=== PATIENT | female | born 1975 | race Hispanic/Latino ===

== ENCOUNTER 2016-12-23 11:58 | Emergency (ER) | payer OTHER ==
[~2016-12-23] VITALS: Ht 152.4 cm; Wt 72.6 kg
[~2016-12-23 11:58] MED LIST: AUGMENTIN 875-1 EACH PO; ERYTHROMYCIN1 GM OPH; NORFLEX100 MG PO; OMEPRAZOLE40 M1 PO; PERCOCET 5-3251 EACH PO; TERBINAFINE HC250 MG PO; VENTOLIN HFA18 GM INH; VITAMIN D250000 UNIT PO; VOLTAREN75 MG PO; ZOFRAN4 M2 PO; ZOFRAN4 M2 SL
--- NOTE | 2016-12-23 13:14 | ED GENERAL ADULT ---
History of Present Illness General Chief Complaint: Female Urogenital Problems Stated Complaint: L SIDE PAIN Source: patient Exam Limitations: no limitations Allergies Coded Allergies: morphine (Severe, SOB 09/26/16) hydromorphone (From DILAUDID) (Mild, THIGHTNESS IN THROAT 09/26/16) ibuprofen (Intermediate, ABD PAIN 09/26/16) Reconcile Medications No Known Home Medications Triage Note: PT TO ED WITH C/O RIGHT LOWER ABD "DUE FOR PERIOD", "I HAD MY LEFT OVARY REMOVED FOR A TUMOR IN SEPTEMBER". DENIES FEVER, DENIES N/V/D, DENIES URINARY DIFF. Triage Nurses Notes Reviewed? yes : No Patient currently breastfeeds: No HPI: MS. HOBSON IS A 41 YO F W/ PMH OF TERATOMA S/P RESECTION AND H.PYLORI PRESENTING TO ED FOR L-SIDED PELVIC PAIN AND VAGINAL BLEEDING. PT STATES SHE'S HAD VAGINAL BLEEDING X7DAYS. PT STATES SHE HAD SOME LOWER PELVIC PAIN YESTERDAY , TOOK MOTRIN, WHICH HELPED. TODAY, PAIN DEVELOPED AGAIN, BUT WAS MORE SEVERE. SHE TOOK MOTRIN AT 11AM WITHOUT RELIEF. PT HAD A NORMAL PERIOD 2 WEEKS AGO THAT LASTED FOR 3DAYS. PT STATES HER PERIODS NORMALLY ONLY LAST 3D. PT DENIES FEVER , CHILLS, CHEST PAIN, COUGH, SOB, N/V/D, DYSURIA, VAGINAL DISCHARGE. (SIRI COLLINS,[facility]) Vital Signs & Intake/Output Vital Signs & Intake/Output Vital Signs Date Time Temp Pulse Resp B/P Pulse O2 O2 Flow FiO2 Ox Delivery Rate 12/23 1526 97.0 84 15 128/73 95 Room Air Room Air 12/23 1311 Room Air Room Air 12/23 1208 98.3 80 20 127/88 98 Room Air Room Air Past History Travel History Traveled to [place] past 21 day No Medical History Any Pertinent Medical History? see below for history Neurological: NONE EENT: NONE Cardiovascular: NONE Respiratory: NONE Gastrointestinal: H. PYLORI Hepatic: NONE Renal: NONE Musculoskeletal: NONE Psychiatric: NONE Endocrine: NONE Blood Disorders: NONE Cancer(s): NONE PATIENT SERVICES MANAGER/Reproductive: OVARIAN CYST History of MRSA: No History of VRE: No History of CDIFF: No Surgical History Surgical History: , OOPHORECTOMY Psychosocial History Who do you live with Son What is your primary language Setswana Tobacco Use: Never used ETOH Use: denies use Illicit Drug Use: denies illicit drug use Family History Hx Contributory? No (BROOKE HORNER MD) Review of Systems Review of Systems Constitutional: Reports: no symptoms. EENTM: Reports: no symptoms. Respiratory: Reports: no symptoms. Cardiovascular: Reports: no symptoms. GI: Reports: no symptoms. Genitourinary: Reports: pain (L PELVIC PAIN AND VAG BLEEDING). Denies: discharge, dysuria, frequency, hematuria. Musculoskeletal: Reports: no symptoms. Skin: Reports: no symptoms. Neurological/Psychological: Reports: no symptoms. Hematologic/Endocrine: Reports: no symptoms. Immunologic/Allergic: Reports: no symptoms. All Other Systems: Reviewed and Negative (BROOKE HORNER MD) Physical Exam Physical Exam General Appearance: well developed/nourished, no apparent distress, alert, awake Head: atraumatic, normal appearance, active bleeding Eyes: Bilateral: normal appearance, PERRL, EOMI. Ears, Nose, Throat: normal pharynx, normal ENT inspection, hearing grossly normal Neck: normal inspection, supple, full range of motion Respiratory: normal breath sounds, chest non-tender, no respiratory distress Cardiovascular: regular rate/rhythm, normal peripheral pulses Gastrointestinal: soft, non-tender, no organomegaly Rectal: deferred Back: normal inspection, normal range of motion Extremities: normal inspection, normal capillary refill, normal range of motion, no edema Neurologic/Psych: no motor/sensory deficits, awake, alert, oriented x 3, normal gait, normal mood/affect Skin: intact, normal color, warm/dry Comments: CLOSED CERVICAL OS. NO CMT. ACTIVE VAGINAL BLEEDING Core Measures ACS in differential dx? No CVA/TIA Diagnosis: No Severe Sepsis Present: No Septic Shock Present: No (BROOKE HORNER MD) Progress Differential Diagnoses I considered the following diagnoses in my evaluation of the patient: [ DYSMENORRHEA CERVICITIS UTI RUPTURED CYST DYSMENORRHEA Diagnostic Imaging: Viewed by Me: Ultrasound. Discussed w/RAD: Ultrasound. Radiology Impression: 1. Normal uterus and endometrial stripe. 2. Status post left oophorectomy with no evidence of recurrent mass. 3. Large thin-walled cystic mass is seen completely replacing the right ovarian parenchyma. There may be slight complexity to the mass with question of subtle focal vascular flow within the cyst wall versus adjacent flattened ovarian tissue. No suspicious nodular components seen. Findings are probably benign. Short interval follow-up ultrasound evaluation in 6 weeks is suggested for reassessment. Initial ED EKG: none (BROOKE HORNER MD) Plan of Care: Orders Procedure Date/time Status COMPREHENSIVE METABOLIC PANEL 12/23 1311 Complete CBC WITHOUT DIFFERENTIAL 12/23 1311 Complete URINE 12/23 121 Complete URINALYSIS 12/23 121 Complete Laboratory Tests 12/23/16 1320: Anion Gap 9, Estimated GFR > 60, BUN/Creatinine Ratio 24.0, Glucose 80, Calcium 8.5, Total Bilirubin 0.3, AST 19, ALT 37, Alkaline Phosphatase 97, Total Protein 6.7, Albumin 3.6, Globulin 3.1, Albumin/Globulin Ratio 1.2, CBC w Diff NO MAN DIFF REQ, RBC 4.74, MCV 83.4, MCH 27.4, RDW 13.4, MPV 8.0, Gran % 66.7, Lymphocytes % 19.7 L, Monocytes % 8.3, Eosinophils % 4.7, Basophils % 0.6, Absolute Granulocytes 5.7, Absolute Lymphocytes 1.7, Absolute Monocytes 0.7 H, Absolute Eosinophils 0.4, Absolute Basophils 0, PUBS MCHC 32.9 L 12/23/16 131: Urine Test Cancelled 12/23/16 1219: Urine Color BLDY H, Urine Clarity TURBD H, Urine pH 5.0, Ur Specific [place] 1.025, Urine Protein 100 H, Urine Ketones TRACE H, Urine Nitrite POS H, Urine Bilirubin NEG, Urine Urobilinogen 2.0 H, Ur Leukocyte Esterase SMALL H, Ur Microscopic SEDIMENT EXAMINED, Urine RBC PACKD H, Urine WBC RARE, Ur Epithelial Cells FEW, Urine Hemoglobin LARGE H, Urine Glucose NEG, Urine Test NEGATIVE PT IS WELL-APPEARING 41 YO F. HX OF TERATOMA S/P REMOVAL W/ ABDOMINAL PAIN AND VAG BLEEDING. PT IS WELL-APPEARING. LIKELY DYSMENORRHEA. WILL OBTAIN US AND BASIC LABS. LABS DO NOT SHOW ANY EVIDENCE OF ANEMIA. PELVIC EXAM NEGATIVE FOR CMT TENDERNESS. UNLIKELY INFECTIOUS ETIOLOGY. UA NEGATIVE FOR UTI, BUT LIMITED SAMPLE GIVEN EXCESS OF BLOOD IN IT. US DOES SHOW A LARGE R SIDED CYST. PT'S PAIN IMPROVED W/ FLUIDS AND TORADOL. WILL DC HOME W/ F/U W/ PATIENT SERVICES MANAGER AND RETURN PRECAUTIONS GIVEN. (BROOKE HORNER MD) Departure Departure Time of Disposition: 1638 Disposition: HOME OR SELF CARE Condition: Stable Clinical Impression Primary Impression: Pelvic pain Secondary Impressions: Dysmenorrhea Referrals: AUDREY ARIZMENDI (PCP/Family) Additional Instructions: YOUR BLOODWORK TODAY DOES NOT SHOW ANY PROBLEMS. YOUR ULTRASOUND SHOWS: 1. Normal uterus and endometrial stripe. 2. Status post left oophorectomy with no evidence of recurrent mass. 3. Large thin-walled cystic mass is seen completely replacing the right ovarian parenchyma. There may be slight complexity to the mass with question of subtle focal vascular flow within the cyst wall versus adjacent flattened ovarian tissue. No suspicious nodular components seen. Findings are probably benign. Short interval follow-up ultrasound evaluation in 6 weeks is suggested for reassessment. I WOULD RECOMMEND YOU FOLLOW UP WITH YOUR GYNOCOLOGIST SOON POSSIBLE. IF YOU HAVE WORSENING PAIN, UNABLE TO WALK, LIGHTHEADEDNESS OR ANY WORSENING OF SYMPTOMS, RETURN TO THE EMERGENCY DEPARTMENT. Departure Forms: Customer Survey General Discharge Information Prescriptions: Current Visit Scripts No Known Home Medications (BROOKE HORNER MD) Resident Co-Sign Statement Statement: ED Attending supervision documentation- [X] I saw and evaluated the patient. I have also reviewed all the pertinent lab results and diagnostic results. I agree with the findings and the plan of care as documented in the Resident's documentation. [] I have reviewed the ED Record and agree with the Resident's documentation. [] Additions or exceptions (if any) to the Resident's note and plan are summarized below: [] (RONDA COLILNS,AN Cancino) Critical Care Note Critical Care Note Critical Care Time: non-applicable (BROOKE HORNER MD)
[2016-12-23 13:27] LABS: ABSOLUTE BASOPHIL COUNT 0 /CUMM (0.0-0.2); ABSOLUTE EOSINOPHIL COUNT 0.4 /CUMM (0.0-0.7); ABSOLUTE GRANULOCYTE CT 5.7 /CUMM (1.4-6.5); ABSOLUTE LYMPH COUNT 1.7 /CUMM (1.2-3.4); ABSOLUTE MONOCYTE COUNT 0.7 /CUMM (0.10-0.60); BASOPHIL % 0.6 % (0.0-2.0); EOSINOPHIL % 4.7 % (0-5); GRANULOCYTE % 66.7 % (42.2-75.2); HEMATOCRIT 39.5 % (37-47); MEAN CORPUSCULAR HGB 27.4 PG (27.0-31.0); MEAN CORPUSCULAR HGB CONC 32.9 G/DL (33.0-37.0); MEAN CORPUSCULAR VOLUME 83.4 FL (81.0-99.0); PLATELET COUNT 297 /CUMM (130-400); RBC DISTRIBUTION WIDTH 13.4 % (11.5-14.5); RED BLOOD CELL CT 4.74 /CUMM (4.20-5.40); WHITE BLOOD CELL COUNT 8.5 /CUMM (4.8-10.8)
--- NOTE | 2016-12-23 14:45 | ULTRASOUND REPORT ---
EXAMINATION: ULTRASOUND OF THE PELVIS CLINICAL INFORMATION: Abdominal pain. Vaginal bleeding. Teratoma removed 1 year ago. COMPARISON: Pelvic ultrasound dated 05/28/2012. TECHNIQUE: Transabdominal and transvaginal pelvic ultrasound. A transvaginal study was performed in addition to the transabdominal study which did not yield an adequate examination of the uterus and ovaries due to superimposed distended gas-filled loops of bowel. FINDINGS: Uterus: The uterus is anteverted and normal in size and appearance, measuring 9.6 x 4.0 x 4.1 cm. The endometrial stripe thickness is normal, measuring 1.1 cm in thickness. No focal myometrial mass is seen. The cervical length is normal measuring 2.8 cm. Small nabothian cysts are seen in the cervix. Ovaries: The right ovary is enlarged and completely replaced by a thin-walled anechoic cystic mass, which measures 4.2 x 2.6 x 3.9 cm (21.9 mL volume). In the anterior cyst wall, small amount of arterial vascular flow is seen, possibly within the flattened ovarian parenchyma versus within the cyst wall itself. The left ovary has been surgically removed. No suspicious mass seen in the left adnexa. Other: No adnexal mass or free fluid collection seen. IMPRESSION: 1. Normal uterus and endometrial stripe. 2. Status post left oophorectomy with no evidence of recurrent mass. 3. Large thin-walled cystic mass is seen completely replacing the right ovarian parenchyma. There may be slight complexity to the mass with question of subtle focal vascular flow within the cyst wall versus adjacent flattened ovarian tissue. No suspicious nodular components seen. Findings are probably benign. Short interval follow-up ultrasound evaluation in 6 weeks is suggested for reassessment.
[2016-12-23 15:26] VITALS: BP 128/73
== END 2016-12-23 16:50 ==
LOC: ERH 11:58
PROVIDERS: Emergency Medicine
DX: R10.2 Pelvic and perineal pain (principal); N94.6 Dysmenorrhea, unspecified
CPT/HCPCS: 81001; 81025; 96374; J1885

== ENCOUNTER → 2017-01-04 | Day surgery (SDC) | payer OTHER ==
[~2017-01-04] VITALS: Ht 157.5 cm; Wt 68.9 kg
[2017-01-04 11:24] LABS: ABSOLUTE BASOPHIL COUNT 0 /CUMM (0.0-0.2); ABSOLUTE EOSINOPHIL COUNT 0.4 /CUMM (0.0-0.7); ABSOLUTE GRANULOCYTE CT 4.4 /CUMM (1.4-6.5); ABSOLUTE LYMPH COUNT 1.6 /CUMM (1.2-3.4); ABSOLUTE MONOCYTE COUNT 0.6 /CUMM (0.10-0.60); BASOPHIL % 0.7 % (0.0-2.0); EOSINOPHIL % 6.3 % (0-5); HEMATOCRIT 39.2 % (37-47); MEAN CORPUSCULAR HGB 27.9 PG (27.0-31.0); MEAN CORPUSCULAR HGB CONC 33.8 G/DL (33.0-37.0); MEAN CORPUSCULAR VOLUME 82.6 FL (81.0-99.0); MEAN PLATELET VOLUME 8.1 FL (7.4-10.4); PLATELET COUNT 316 /CUMM (130-400); RED BLOOD CELL CT 4.75 /CUMM (4.20-5.40); WHITE BLOOD CELL COUNT 7.1 /CUMM (4.8-10.8)
[2017-01-04 11:40] LABS: PT 10.3 SEC (9.4-12.5); PTT 31 SEC (25-37)
--- NOTE | 2017-01-04 14:25 | Operative Report ---
Operative/Inv Procedure Report Surgery Date: 01/04/17 Name of Procedure: D&C hysteroscopy Pre-Operative Diagnosis: Metromenorrhagia Post-Operative Diagnosis: Same fibroid uterus Estimated Blood Loss: 50ml to 100ml Surgeon/Mechanical Technical Service Specialist: JONO COLLINS,JENNIFER Canas Anesthesia: moderate sedation Operative/Procedure Note Note: Patient was taken to the operating room placed in dorsal supine position. After adequate anesthesia, patient was prepped and draped for surgery. Examination under anesthesia was performed. CO2 tenaculum was placed on the anterior lip of the cervix gentle downward traction was used. The cervix was dilated 29 Hegar to left insertion of the hysteroscope. Under direct visualization to hysteroscopy was performed using gas hysteroscope was removed and endocervical curettage was performed. And endometrial curettage was performed. All instruments removed from the vagina. The counts were correct the patient was awakened from anesthesia. And transported to recovery room awake and alert. Findings: Slightly enlarged uterus heavy uterine lining no adnexal masses normal cervix
== END ==
LOC: STS 01-03 23:10
PROVIDERS: Specialist
DX: N92.1 Excessive and frequent menstruation with irregular cycle (principal); D25.9 Leiomyoma of uterus, unspecified
CPT/HCPCS: 36415; 81001; 88305; J2250